=== PATIENT | male | born 1955 | race Caucasian/White ===

== ENCOUNTER 2018-06-19 09:50 | Outpatient (CLI) | payer MEDICARE, OTHER ==
--- NOTE | 2018-06-19 11:33 | MRI ---
MR OF THE PELVIS WITH AND WITHOUT CONTRAST INDICATION: 63-year-old male with history of prostate cancer; initial staging; radiation planning COMPARISON: None TECHNIQUE: Multiplanar, multisequence MR images were obtained of the pelvis with and without IV contr ast. 16 cc of MultiHance was utilized for the examination. The examination was reviewed on a separate [employer] 3-D workstation for multiplanar metric evaluation. FINDINGS: Prostate size: The prostate measured 4.3 x 3.2 x 2.9cm. 19.75 cc. Peripheral zone: There is a 1.0 x 0.5 cm T2 hypointense lesion with associated restricted diffusion a nd abnormal dynamic contrast enhancement seen within the lateral right mid gland. Central zone: No suspicious signal abnormality or focal lesion. Neural vasculature: The lesion abuts the capsule of the right lateral mid prostate gland with irregul arity of the contour of the capsule and slight asymmetric prominence of the right neurovascular suspicious for neurovascular involvement. Regional lymphadenopathy: None Dynamic contrast enhancement: The lesion within the lateral right mid prostate gland demonstrates abn ormal dynamic contrast enhancement. Osseous structures: No suspicious osseous lesion is identified. Additional findings: None.. IMPRESSION: 1. PIRADS 4- High(clinically significant cancer is likely to be present.) 2. There is a 1 x 0.5 cm T2 hyperintense, ADC hypointense, abnormally enhancing lesion seen within th e lateral right mid prostate gland with suspicious for right-sided neurovascular involvement.
[2018-06-19] MEDS ORDERED: Gadobenate Dimeglumine 529 MG/1 ML (20ML VIAL) ONE (13:09)
== END 2018-06-19 09:51 | disposition home or self-care (01) ==
LOC: TBSIIMAG 09:50
PROVIDERS: ATTEND Radiology Radiation Oncology
DX: C61 Malignant neoplasm of prostate (principal); R93.49 Abnormal radiologic findings on diagnostic imaging of other urinary organs
CPT/HCPCS: 72197; 82565